=== PATIENT | female | born 1980 | race Caucasian/White ===

== ENCOUNTER → 2019-07-03 12:45 | Emergency (ER) | payer BC ==
[2019-07-03 13:50] VITALS: BP 125/91
--- NOTE | 2019-07-03 14:02 | ED ---
Lower Extremity - HPI Summary HPI Summary: 38 yr old female with the complaint of right ankle pain. Onset yesterday. She went running outside and she slipped on a wet piece of wood. She inverted the ankle. She has pain and swelling over the lateral malleolus and over the lateral foot. She can bear weight but with pain. Her pain is moderate. - History of Current Complaint Chief Complaint: UCLowerExtremity Stated Complaint: RIGHT ANKLE INJURY Time Seen by Provider: 07/03/19 13:54 Hx Last Menstrual Period: 02/20/16 Pain Intensity: 3 - Allergies/Home Medications Allergies/Adverse Reactions: Allergies Allergy/AdvReac Type Severity Reaction Status Date / Time erythromycin base Allergy Rash Verified 07/03/19 13:45 Sulfa (Sulfonamide Allergy Rash Verified 07/03/19 13:45 Antibiotics) Home Medications: Home Medications Naproxen [Naproxen 250 mg tab] 500 mg PO ONCE 07/03/19 [History Confirmed ] PMH/Surg Hx/FS Hx/Imm Hx - Surgical History Surgery Procedure, Year, and Place: Carpal tunnel surgery bilateral. T&A as a child Infectious Disease History: No Infectious Disease History: Denies: Traveled Outside the [place] in Last 30 Days - Family History Known Family History: Positive: Hypertension - Social History Alcohol Use: Occasionally Substance Use Type: Reports: None Smoking Status (MU): Light Every Day Tobacco Smoker Type: Cigarettes Amount Used/How Often: 2-3 cigarettes Review of Systems Constitutional: Negative Positive: Other - pain swelling lateral right ankle. All Other Systems Reviewed And Are Negative: Yes Physical Exam Triage Information Reviewed: Yes Vital Signs On Initial Exam: Initial Vitals Temp Pulse Resp BP Pulse Ox 98.6 F 74 16 125/91 98 07/03/19 13:45 07/03/19 13:45 07/03/19 13:45 07/03/19 13:45 07/03/19 13:45 Vital Signs Reviewed: Yes Appearance: Positive: Well-Appearing, No Pain Distress Skin: Positive: Warm, Skin Color Reflects Adequate Perfusion Head/Face: Positive: Normal Head/Face Inspection Eyes: Positive: EOMI ENT: Positive: Normal ENT inspection Neck: Positive: Nontender Respiratory/Lung Sounds: Positive: Clear to Auscultation Cardiovascular: Positive: Other - normal DP and PT pulse right foot. Abdomen Description: Positive: Nontender Musculoskeletal: Positive: Strength/ROM Intact Neurological: Positive: Sensory/Motor Intact, Alert, Oriented to Person Place, Time, CN Intact II-III, Normal Gait, Speech Normal Psychiatric: Positive: Normal Diagnostics - Vital Signs Vital Signs Temp Pulse Resp BP Pulse Ox 07/03/19 13:45 98.6 F 74 16 125/91 98 - Laboratory Lab Statement: Any lab studies that have been ordered have been reviewed, and results considered in the medical decision making process. - Radiology ankle foot right Radiology Interpretation Completed By: Radiologist - STS over the lateral malleolus. Lower Extremity Course/Dx - Course Course Of Treatment: 38 yr old with STS and neg fracture per rad. FU with PMD. Ortho referral. - Diagnoses Provider Diagnoses: Right ankle sprain Discharge ED - Sign-Out/Discharge Documenting (check all that apply): Patient Departure All imaging exams completed and their final reports reviewed: Yes - Discharge Plan Condition: Good Disposition: HOME Patient Education Materials: Ankle Sprain (ED) Referrals: No Primary Care Phys,NOPCP [Primary Care Provider] - Steve Victoria MD [Medical Doctor] - - Billing Disposition and Condition Condition: GOOD Disposition: Home
== END | disposition home or self-care (01) ==
LOC: UCCORT 12:45
DX: S93.491A Sprain of other ligament of right ankle, initial encounter (principal); F17.210 Nicotine dependence, cigarettes, uncomplicated; Z88.1 Allergy status to other antibiotic agents; Z88.2 Allergy status to sulfonamides; W18.49XA Other slipping, tripping and stumbling without falling, initial encounter; X50.0XXA Overexertion from strenuous movement or load, initial encounter; Y92.9 Unspecified place or not applicable
CPT/HCPCS: 99202; G0463